=== PATIENT | female | born 1955 | race Caucasian/White ===

== ENCOUNTER 2020-12-06 09:26 | Day surgery (SDC) | payer BC ==
[~2020-12-06] VITALS: Ht 165.1 cm; Wt 72.0 kg
[2020-12-06] MEDS ORDERED: MULT-658 PO (10:08)
[2020-12-06] MEDS ORDERED: ASPI81TA45 PO (10:08)
[2020-12-06] MEDS ORDERED: OMEG1600 PO (10:08)
[2020-12-06] MEDS ORDERED: CALC-192 PO (10:08)
[2020-12-06] MEDS ORDERED: ATOR40TA78 PO (10:08)
[2020-12-06] MEDS ORDERED: [UNRECOGNIZED DRUG - CODE] PO (10:08)
[2020-12-06] MEDS ORDERED: AMLO-150 PO (10:08)
[2020-12-06 10:09] VITALS: BP 135/72
[2020-12-06 10:13] LABS: BASOPHILS % (AUTO) 1 % (0-1); EOSINOPHILS % (AUTO) 1 % (1-7); LYMPHOCYTES % (AUTO) 30 % (22-44); MEAN CORPUSCULAR HGB CONC 33.6 g/dL (32.4-35.8); MEAN PLATELET VOLUME 9.3 fL (7.4-10.4); MONOCYTES % (AUTO) 11 % (2-9); NEUTROPHILS % (AUTO) 57 % (42-75); PLATELET COUNT 225 x10^3/uL (130-400); RED BLOOD COUNT 4.83 x10^6/uL (3.82-5.3); RED CELL DISTRIBUTION WIDTH 12.5 % (9.6-15.2)
[2020-12-06 10:22] LABS: ANION GAP 5 mmol/L (5-15); CALCIUM 9.2 mg/dL (8.5-10.1); CHLORIDE 111 mmol/L (98-107); CREATININE 0.56 mg/dL (0.55-1.02)
[2020-12-06] MEDS ORDERED: BIVALIRUDIN 250 MG ONE (11:21)
[2020-12-06] MEDS ORDERED: LIDOCAINE-MPF 1%, 5ML ONE (11:21)
[2020-12-06] MEDS ORDERED: TICAGRELOR 90 MG TABLET ONE (11:21)
[2020-12-06] MEDS ORDERED: HEPARIN 1,000 UNITS/ML, 10ML ONE (11:21)
[2020-12-06] MEDS ORDERED: MIDAZOLAM 1 MG/ML, 5ML ONE (11:21)
[2020-12-06] MEDS ORDERED: VERAPAMIL 2.5 MG/ML, 2ML ONE (11:21)
[2020-12-06] MEDS ORDERED: FENTANYL PF 100 MCG/2ML ONE (11:21)
[2020-12-06] MEDS ORDERED: SODIUM CHLORIDE 0.9% 1,000 ML IV SCH (12:30)
[2020-12-06] MEDS ORDERED: ACETAMINOPHEN 325 MG TABLET ONE (13:25)
== END 2020-12-06 13:55 | disposition home or self-care (01) ==
LOC: CACL 09:26
PROVIDERS: ATTEND Internal Medicine Cardiovascular Disease
DX: R06.00 Dyspnea, unspecified (principal); I25.110 Atherosclerotic heart disease of native coronary artery with unstable angina pectoris; I25.83 Coronary atherosclerosis due to lipid rich plaque; I10 Essential (primary) hypertension; E78.5 Hyperlipidemia, unspecified; Z79.82 Long term (current) use of aspirin; Z79.899 Other long term (current) drug therapy
CPT/HCPCS: 36415; 80048; 85025; 93458; 99156; C1769; C1894; J1644; J2250; J3010; Q9967; J0583

== ENCOUNTER → 2021-01-10 | Outpatient (CLI) | payer BC ==
[~2021-01-10] MED LIST: AMLO-150 PO; ASPI81TA45 PO; ATOR40TA78 PO; CALC-192 PO; MULT-658 PO; OMEG1600 PO; [UNRECOGNIZED DRUG - CODE] PO
== END | disposition home or self-care (01) ==
LOC: CFH 12:04
PROVIDERS: ATTEND Registered Nurse
DX: J84.10 Pulmonary fibrosis, unspecified (principal); R06.00 Dyspnea, unspecified; Z77.22 Contact with and (suspected) exposure to environmental tobacco smoke (acute) (chronic)
CPT/HCPCS: 71250